=== PATIENT | female | born 1960 | race Hispanic/Latino ===

== ENCOUNTER 2022-01-09 18:08 | Emergency (ER) | payer MEDICARE ==
[~2022-01-09] VITALS: Ht 154.9 cm; Wt 68.0 kg
[2022-01-09 18:59] LABS: BASOPHILS # (AUTO) 0.1 (0.0-0.1); BASOPHILS % 0.6 % (0.0-1.0); EOSINOPHILS # (AUTO) 0.1 (0.0-0.4); EOSINOPHILS % 1.3 % (0.0-6.0); HEMATOCRIT 39.1 % (34.2-44.1); HEMOGLOBIN 13.2 g/dL (12.0-16.0); LYMPHOCYTES # (AUTO) 3.1 (1.0-3.2); LYMPHOCYTES % 34.6 % (18.0-39.1); MEAN CORPUSCULAR HEMOGLOBIN 28.3 pg (28-32); MEAN CORPUSCULAR HGB CONC 33.8 g/dL (31-35); MEAN CORPUSCULAR VOLUME 83.7 fL (81-99); MONOCYTES # (AUTO) 0.4 (0.2-0.8); MONOCYTES % 3.9 % (4.4-11.3); NEUTROPHILS # (AUTO) 5.3 (2.1-6.9); NEUTROPHILS % 59.2 % (38.7-80.0); PLATELET COUNT 506 x10e3/uL (140-360); RED BLOOD COUNT 4.67 x10e6/uL (3.6-5.1)
[2022-01-09 19:06] LABS: CLARITY,URINE TURBID (CLEAR); COLOR,URINE YELLOW (YELLOW); KETONES,URINE NEGATIVE (NEGATIVE); LEUKOCYTE ESTERASE ,URINE NEGATIVE (NEGATIVE); NITRITE,URINE NEGATIVE (NEGATIVE); PROTEIN,URINE DIPSTICK NEGATIVE (NEGATIVE); URINE UROBILINOGEN 0.2 mg/dL (0.2 - 1)
[2022-01-09 19:20] LABS: ALANINE AMINOTRANSFERASE 16 IU/L (0-55); ALBUMIN 4.2 g/dL (3.5-5.0); ALBUMIN/GLOBULIN RATIO 1.2 (0.8-2.0); ALKALINE PHOSPHATASE 85 IU/L (40-150); ANION GAP 17.5 mmol/L (8-16); BLOOD UREA NITROGEN 28 mg/dL (7-26); BUN/CREATININE RATIO 23 (6-25); CARBON DIOXIDE 27 mmol/L (22-29); CHLORIDE 95 mmol/L (98-107); CREATINE KINASE 110 IU/L (29-168); CREATININE, SERUM 1.23 mg/dL (0.57-1.11); EST GLOMERULAR FILTRATION RATE 44 ML/MIN (60-); GLUCOSE 294 mg/dL (74-118); POTASSIUM 3.5 mmol/L (3.5-5.1); SODIUM 136 mmol/L (136-145)
[2022-01-09 19:21] LABS: AMYLASE 59 U/L (25-125); LIPASE 34 U/L (8-78)
[2022-01-09 19:23] LABS: BACTERIA,URINE RARE /HPF; EPITHELIAL CELLS,URINE RARE /LPF; RBC,URINE 0-5 /HPF (0-5)
[2022-01-09] MEDS ORDERED: SODIUM CHLORIDE 0.9% 50ML 50 ML ONE (19:40)
[2022-01-09] MEDS ORDERED: IOPAMIDOL 370 MG/ML 200 ML INFUS..BTL INJ ONE (19:40)
[2022-01-09] MEDS ORDERED: ONDANSETRON HCL INJ 2MG/ML 2ML 2 MG/ML VIAL IV STA (20:06)
[2022-01-09 20:50] VITALS: BP 132/82
== END 2022-01-09 20:55 | disposition home or self-care (01) ==
LOC: ER 19:05
DX: R07.89 Other chest pain (principal); R10.13 Epigastric pain; K29.70 Gastritis, unspecified, without bleeding; K21.9 Gastro-esophageal reflux disease without esophagitis; E11.65 Type 2 diabetes mellitus with hyperglycemia; I10 Essential (primary) hypertension; E78.5 Hyperlipidemia, unspecified; F32.A Depression, unspecified
CPT/HCPCS: 36415; 71045; 74177; 80053; 80061; 81001; 82150; 82550; 82553; 83690; 84484; 85025; 93005; 99284; C9113; J2405; Q9967

== ENCOUNTER 2022-01-28 01:24 | Emergency (ER) | payer MEDICARE ==
[~2022-01-28] VITALS: Ht 154.9 cm; Wt 68.0 kg
== END 2022-01-28 02:45 | disposition home or self-care (01) ==
LOC: ER 01:28
DX: M25.511 Pain in right shoulder (principal); M77.8 Other enthesopathies, not elsewhere classified; I10 Essential (primary) hypertension; E11.9 Type 2 diabetes mellitus without complications; E78.5 Hyperlipidemia, unspecified; F32.A Depression, unspecified
CPT/HCPCS: 99283